=== PATIENT | male | born 1940 | race Caucasian/White ===

== ENCOUNTER 2020-03-15 07:56 | Day surgery (SDC) | payer MEDICARE, BC ==
[2020-03-12 13:40] LABS: ALBUMIN 3.6 g/dL (3.4-5.0); ANION GAP 5 mmol/L (5-15); CALCIUM 9.8 mg/dL (8.5-10.1); CHLORIDE 105 mmol/L (98-107)
[2020-03-12 13:45] LABS: ALANINE AMINOTRANSFERASE 29 U/L (12-78); ALKALINE PHOSPHATASE 69 U/L (45-117); BILIRUBIN,TOTAL 0.5 mg/dL (0.2-1.0); CREATININE 1.07 mg/dL (0.7-1.3)
[~2020-03-15] VITALS: Ht 180.3 cm; Wt 70.8 kg
[~2020-03-15 07:56] MED LIST: ASPI-496 PO; ASPI81TA45 PO; CHOL200074 PO; CYAN50008 PO; DAPA5TAB PO; DULA0.75 INJ; HYDR25TA6 PO; INSU100I18 SC; INSU100I18 SQ; INSU100I29 SQ; LOSA100T14 PO; METF500T17 PO; METF850T10 PO; METO25TA35 PO; OMEG1CAP34 PO; OXYC1TAB7 PO; PARO20TA4 PO; SIMV20TA19 PO; TERA2CAP3 PO; TIZA4TAB9 PO; VIT1TABL32 PO
[2020-03-15 08:21] VITALS: BP 123/80
[2020-03-15] MEDS ORDERED: LACTATED RINGERS 1,000 ML IV SCH (08:23)
[2020-03-15] MEDS ORDERED: CHLORHEXIDINE 15 ML UDC MM ONE (08:30)
[2020-03-15] MEDS ORDERED: KETOROLAC 30 MG/1 ML IV PRN (09:30)
[2020-03-15] MEDS ORDERED: PROMETHAZINE 12.5 MG SUPP PR PRN (09:30)
[2020-03-15] MEDS ORDERED: hydrALAzine 20 MG/ML, 1ML IV PRN (09:30)
[2020-03-15] MEDS ORDERED: DIAZEPAM 5 MG/ML, 2ML IVPush PRN (09:30)
[2020-03-15] MEDS ORDERED: DIPHENHYDRAMINE 50 MG/ML, 1ML IVPush PRN ×2 (09:30)
[2020-03-15] MEDS ORDERED: EPHEDRINE 50 MG/ML, 1ML IM PRN (09:30)
[2020-03-15] MEDS ORDERED: PROMETHAZINE 25 MG/ML, 1ML IVPush PRN (09:30)
[2020-03-15] MEDS ORDERED: ACETAMINOPHEN 325 MG TABLET PO PRN (09:30)
[2020-03-15] MEDS ORDERED: LABETALOL 5MG/ML, 20ML IV PRN (09:30)
[2020-03-15] MEDS ORDERED: ONDANSETRON 2MG/ML, 2ML IVPush PRN (09:30)
[2020-03-15] MEDS ORDERED: MEPERIDINE/PF 25MG/0.5ML IVPush PRN (09:30)
[2020-03-15] MEDS ORDERED: METHOCARBAMOL 1,000 MG in DEXTROSE 5% 100 ML IV PRN (09:30)
[2020-03-15] MEDS ORDERED: HYDROmorphone 1 MG/ML, 1ML INJ IVPush PRN (09:30)
[2020-03-15] MEDS ORDERED: OXYcodone 5 MG/5 ML ORAL.SOL UDC PO PRN (09:30)
[2020-03-15] MEDS ORDERED: MIDAZOLAM 1 MG/ML, 2ML IV PRN (09:30)
[2020-03-15] MEDS ORDERED: ALBUTEROL SULFATE 2.5 MG/3 ML NPPB PRN (09:30)
[2020-03-15] MEDS ORDERED: FENTANYL PF 100 MCG/2ML IV PRN (09:30)
[2020-03-15] MEDS ORDERED: FENTANYL PF 250 MCG/5ML ONE (09:42)
[2020-03-15] MEDS ORDERED: ROCURONIUM 10 MG/ML,10ML ONE (09:55)
[2020-03-15] MEDS ORDERED: BUPIVACAINE/EPI 0.5% 1:200K INFIL ONE (10:27)
[2020-03-15] MEDS ORDERED: SUCCINYLCHOLINE 20 MG/ML, 10ML ONE (11:21)
[2020-03-15] MEDS ORDERED: GLYCOPYRROLATE 0.2MG/1ML, 5ML ONE (11:21)
[2020-03-15] MEDS ORDERED: ONDANSETRON 2MG/ML, 2ML ONE (11:21)
[2020-03-15] MEDS ORDERED: CEFAZOLIN 1,000 MG ONE (11:21)
[2020-03-15] MEDS ORDERED: DEXAMETHASONE 4 MG/ML, 1ML ONE (11:21)
[2020-03-15] MEDS ORDERED: NEOSTIGMINE 1 MG/ML, 10ML ONE (11:21)
[2020-03-15] MEDS ORDERED: PROPOFOL 10 MG/ML, 20ML ONE (11:21)
== END 2020-03-15 12:55 | disposition home or self-care (01) ==
LOC: OUT 07:56
PROVIDERS: ATTEND Colon & Rectal Surgery
DX: K40.91 Unilateral inguinal hernia, without obstruction or gangrene, recurrent (principal); E11.9 Type 2 diabetes mellitus without complications; I25.10 Atherosclerotic heart disease of native coronary artery without angina pectoris; E78.00 Pure hypercholesterolemia, unspecified; I10 Essential (primary) hypertension; G47.30 Sleep apnea, unspecified; Z20.828 Contact with and (suspected) exposure to other viral communicable diseases; F17.210 Nicotine dependence, cigarettes, uncomplicated; Z79.4 Long term (current) use of insulin; Z98.52 Vasectomy status; Z79.82 Long term (current) use of aspirin; Z96.641 Presence of right artificial hip joint; Z79.899 Other long term (current) drug therapy; Z88.5 Allergy status to narcotic agent; Z88.8 Allergy status to other drugs, medicaments and biological substances; Z95.5 Presence of coronary angioplasty implant and graft; Z95.818 Presence of other cardiac implants and grafts; Z98.890 Other specified postprocedural states; Z80.49 Family history of malignant neoplasm of other genital organs; Z82.49 Family history of ischemic heart disease and other diseases of the circulatory system
CPT/HCPCS: 36415; 49651; 80053; 82962; 87635; 93005; C1781; J0330; J0690; J1100; J2405; J2704; J2710; J3010; J7120